=== PATIENT | female | born 1975 | race Caucasian/White ===

== ENCOUNTER 2019-01-22 20:35 | Emergency (ER) | payer OTHER ==
[2019-01-22 20:47] VITALS: BP 162/89; PULSE 104; TEMP 98.4; BMI 47.5
--- NOTE | 2019-01-22 20:48 | PDOC ---
Rapid Medical Evaluation Time Seen by Provider: 01/22/19 20:44 Medical Evaluation: 01/22/19 20:46 I performed a brief in-person evaluation of this patient. Chief complaint: Sharp chest pain, "more intense" than previous pain with GERD or panic attacks Pertinent physical exam findings: RRR, S1/S2, mildly tachycardic. Clear lungs. I have ordered the following: EKG, CXR, cardiac labs, UA, urine preg Patient will proceed to the ED for further evaluation. Discharge Disposition - Diagnosis Chest pain - Referrals - Patient Instructions - Post Discharge Activity
[2019-01-22 21:25] LABS: BASO % 0.3 % (0-2.0); EOS % 2.3 % (0-4.5); HEMATOCRIT 37.4 % (32.4-45.2); HEMOGLOBIN 13.1 GM/dL (10.7-15.3); LYMPH % 35.7 % (8-40); MCH 31.4 pg (25.7-33.7); MCHC 34.9 g/dl (32.0-36.0); MEAN CELL VOLUME 89.9 fl (80-96); MEAN PLT VOLUME 7.6 fl (7.5-11.1); MONO % 8.5 % (3.8-10.2); NEUT % 53.2 % (42.8-82.8); PLATELET COUNT 325 K/MM3 (134-434); RBC 4.17 M/mm3 (3.60-5.2); RDW 12.8 % (11.6-15.6); WHITE BLOOD COUNT 8.2 K/mm3 (4.0-10.0)
--- NOTE | 2019-01-22 21:33 | PDOC ---
History of Present Illness - General Chief Complaint: Chest Pain Stated Complaint: CHEST PAIN Time Seen by Provider: 01/22/19 20:44 History Source: Patient Exam Limitations: No Limitations Past History - Past Medical History Allergies/Adverse Reactions: Allergies Allergy/AdvReac Type Severity Reaction Status Date / Time Penicillins Allergy Verified 01/22/19 20:47 Home Medications: Ambulatory Orders NK [No Known Home Medication] 01/22/19 COPD: No Thyroid Disease: Yes - Suicide/Smoking/Psychosocial Hx Smoking History: Never smoked *Physical Exam - Vital Signs Last Vital Signs Temp Pulse Resp BP Pulse Ox 98.4 F 104 H 20 162/89 98 01/22/19 20:44 01/22/19 20:44 01/22/19 20:44 01/22/19 20:44 01/22/19 20:44 - Physical Exam General Appearance: No: Apparent Distress Respiratory/Chest: positive: Lungs Clear, Normal Breath Sounds. negative: Chest Tender, Respiratory Distress Cardiovascular: positive: Regular Rhythm, Regular Rate, S1, S2. negative: Murmur Gastrointestinal/Abdominal: positive: Normal Bowel Sounds, Soft. negative: Tender, Distended, Guarding, Rebound Extremity: positive: Normal Inspection. negative: Pedal Edema, Calf Tenderness Integumentary: positive: Normal Color Neurologic: positive: Fully Oriented, Alert, Normal Mood/Affect Heart Score/ECG Review - History History: Slightly suspicious - Electrocardiogram EKG: Normal - Age Age: 45-65 - Risk Factors Risk Factors Heart Score: Yes Positive family hx of cardiac disease Based on the list above the patient has:: 1-2 risk factors - Troponin Troponin: </= normal limit - Score Heart Score - Total: 2 Moderate Sedation - Procedure Monitoring Vital Signs: Procedure Monitoring Vital Signs Temperature 98.4 F 01/22/19 20:44 Pulse Rate 104 H 01/22/19 20:44 Respiratory Rate 20 01/22/19 20:44 Blood Pressure 162/89 01/22/19 20:44 O2 Sat by Pulse Oximetry (%) 98 01/22/19 20:44 ED Treatment Course - LABORATORY CBC & Chemistry Diagram: 01/22/19 21:03 01/22/19 21:03 - ADDITIONAL ORDERS Additional order review: Laboratory Results 01/22/19 01/22/19 21:03 21:03 PT with INR 11.50 INR 0.97 Sodium 137 Potassium 4.2 Chloride 107 Carbon Dioxide 26 Anion Gap 5 L BUN 9 Creatinine 0.6 Creat Clearance w eGFR 108.11 Random Glucose 104 Calcium 9.1 Total Bilirubin 0.4 AST 26 ALT 22 Alkaline Phosphatase 53 Creatine Kinase 161 Creatine Kinase Index 0.6 CK-MB (CK-2) < 1.0 Troponin I < 0.02 Total Protein 7.3 Albumin 3.7 01/22/19 21:03 RBC 4.17 MCV 89.9 MCHC 34.9 RDW 12.8 MPV 7.6 Neutrophils % 53.2 Lymphocytes % 35.7 Monocytes % 8.5 Eosinophils % 2.3 Basophils % 0.3 Medical Decision Making - Medical Decision Making 43 y/o F with hx of GERD, anxiety, hypothyroidism presents with sharp pain under R breast and burning substernal CP which initially started 2 days ago at night and then reoccurred again today around 4:30 PM. Mentions was very stressed at work today so unsure if that triggered it. Does not feel like a panic attack. Tried taking Tums but they did not help either. CP is nonexertional and not worsened by anything in particular. Currently is pain free. Denies fever, URI sxs, cough, sob, palpitations, dizziness, abd pain, n/v , calf pain, calf swelling, recent travel/surgeries, OCP use. Denies having this type of pain before. Mentions her mom had "mini-OK" around age 65. Consider ACS No risk factors for PE EKG: NSR at 98 bpm, no ST-T changes Plan: Labs, CXR 01/22/19 21:30 Labs reviewed and unremarkable Heart score 2 Patient resting comfortably, in no pain Patient stable for d/c; advised f/u with her PCP 01/22/19 22:49 *DC/Admit/Observation/Transfer Diagnosis at time of Disposition: Chest pain Qualifiers: Chest pain type: other chest pain Qualified Code(s): R07.89 - Other chest pain - Discharge Dispostion Disposition: HOME Condition at time of disposition: Stable Decision to Admit order: No - Referrals Referrals: Russ Velazquez MD [Primary Care Provider] - 2 Days - Patient Instructions Printed Discharge Instructions: DI for Chest Pain Additional Instructions: Thank you for choosing [facility]. It was a pleasure taking care of you. Your labs and chest xray were normal Would recommend you follow-up with your doctor for further evaluation Return to the Emergency Department if your symptoms worsen or persist or have other concerning symptoms. - Post Discharge Activity
[2019-01-22 21:52] LABS: INR 0.97 (0.83-1.09); PROTHROMBIN TIME (PATIENT) 11.5 SEC (9.7-13.0)
[2019-01-22 22:33] LABS: ALBUMIN 3.7 g/dl (3.4-5.0); ALK PHOS 53 U/L (45-117); ANION GAP 5 MMOL/L (8-16); BILIRUBIN,TOTAL 0.4 mg/dL (0.2-1); BLOOD UREA NITROGEN 9 mg/dL (7-18); CALCIUM 9.1 mg/dL (8.5-10.1); CHLORIDE 107 mmol/L (98-107); CO2 26 mmol/L (21-32); CREATININE 0.6 mg/dL (0.55-1.3); GLUCOSE,RANDOM 104 mg/dL (74-106); POTASSIUM 4.2 mmol/L (3.5-5.1); SGOT/AST 26 U/L (15-37); SGPT/ALT 22 U/L (13-61); SODIUM 137 mmol/L (136-145); TOT PROT 7.3 g/dl (6.4-8.2)
--- NOTE | 2019-01-23 10:57 | EKG ---
Test Reason : Blood Pressure : / mmHG Vent. Rate : 098 BPM Atrial Rate : 098 BPM P-R Int : 142 ms QRS Dur : 086 ms QT Int : 370 ms P-R-T Axes : 043 030 019 degrees QTc Int : 472 ms NORMAL SINUS RHYTHM POOR R WAVE PROGRESSION ABNORMAL ECG NO PREVIOUS ECGS AVAILABLE Confirmed by LAURENT DANIELS MD ([id number]) on 01/23/2019 10:57:18 AM Referred By: Confirmed By:LAURENT DANIELS MD
== END 2019-01-22 23:31 | disposition home or self-care (01) ==
LOC: JER 20:35
DX: R07.89 Other chest pain (principal); K21.9 Gastro-esophageal reflux disease without esophagitis; E03.9 Hypothyroidism, unspecified; F41.9 Anxiety disorder, unspecified
CPT/HCPCS: 36415; 71046-TC-FY; 80053; 82550; 82553; 84484; 85025; 85610; 93005; 93010; 99283-25

== ENCOUNTER 2019-03-26 23:25 | Emergency (ER) | payer OTHER ==
[2019-03-26 23:41] VITALS: BP 150/96; PULSE 106; TEMP 98.1; BMI 49.4
--- NOTE | 2019-03-26 23:55 | PDOC ---
History of Present Illness - General Chief Complaint: Pain, Acute Stated Complaint: RT KNEE PAIN Time Seen by Provider: 03/26/19 23:37 - History of Present Illness Initial Comments: This 43-year-old woman with a history of hypothyroidism/anxiety presents with 1 day history of worsening right knee pain. Patient states that she has had right knee pain for several weeks after minor injury. She was seen by her PMD, and MRI of the right knee was ordered(awaiting insurance approval) . Today, patient states that she twisted her right knee and since then has had pain with weightbearing. She did not fall and denies any impact of the knee or other body part. She took OTC naproxen for the knee pain about 4 hours prior to presentation with minimal relief. She denies any other pain or edema of the right leg. Past History - Past Medical History Allergies/Adverse Reactions: Allergies Allergy/AdvReac Type Severity Reaction Status Date / Time Penicillins Allergy Verified 01/22/19 20:47 Home Medications: Ambulatory Orders Levothyroxine [Synthroid -] 125 mcg PO DAILY 03/26/19 Naproxen Sodium [Aleve] 440 mg PO ONCE 03/26/19 Diclofenac Sodium [Voltaren -] 75 mg PO BID PRN #20 tablet. 03/27/19 COPD: No Thyroid Disease: Yes - Suicide/Smoking/Psychosocial Hx Smoking History: Never smoked Review of Systems - Review of Systems Able to Perform ROS?: Yes Comments:: 12 point review of systems is negative except for what is noted in the history of present illness *Physical Exam - Vital Signs Last Vital Signs Temp Pulse Resp BP Pulse Ox 98.1 F 106 H 16 150/96 98 03/26/19 23:37 03/26/19 23:37 03/26/19 23:37 03/26/19 23:37 03/26/19 23:37 - Physical Exam Comments: GENERAL: Adult female, alert and oriented 3, in mild distress secondary to right knee pain HEAD: Normal with no signs of trauma. EXTREMITIES: Right knee-minimal edema, moderate tenderness especially medial aspect and with valgus stressing No ecchymosis or deformity noted Pain is reproduced with passive and active extension of the joint No pain or deformity of the patella Extremity exam is otherwise normal NEUROLOGICAL: Cranial nerves II through XII grossly intact. Normal speech. No focal neurological deficits. MUSCULOSKELETAL: Back non-tender to palpation, no CVA tenderness SKIN: Warm, Dry, normal turgor, no rashes or lesions noted. Progress Note - Progress Note Progress Note: This 43-year-old year-old woman with a history of right knee pain in the recent past presents with increased pain this evening after twisting the right knee during the day today. There was no fall or other impact of the knee. Exam as noted. Because she did not fall or otherwise impact the knee and without evidence of deformity/ecchymosis/marked edema, fracture dislocation is highly unlikely. Therefore, plain x-ray was not performed. Clinical presentation most consistent with soft tissue injury such as ligamentous strain, possibly medially from findings on the exam. MRI of the knee has already been ordered by the patient's PMD and awaiting insurance approval. Therefore, the patient was given Toradol 60 mg IM now for analgesia/ anti-inflammatory effects. Knee immobilizer was placed on the right knee; patient should wear this during the day until reevaluated by her PMD. Diclofenac 75 mg to be used up to twice a day as needed for pain prescribed She should inform her doctor of her new injury and visit to the ER. She return to the emergency room if she has severe, persistent pain or develops increased swelling/bruising. *DC/Admit/Observation/Transfer Diagnosis at time of Disposition: Knee sprain Qualifiers: Encounter type: initial encounter Involved ligament of knee: unspecified ligament Laterality: right Qualified Code(s): S83.91XA - Sprain of unspecified site of right knee, initial encounter - Discharge Dispostion Disposition: HOME Condition at time of disposition: Stable - Prescriptions Prescriptions: Diclofenac Sodium [Voltaren -] 75 mg PO BID PRN #20 tablet.dr GARCIA Reason: Pain - Referrals Referrals: Russ Velazquez MD [Primary Care Provider] - - Patient Instructions Printed Discharge Instructions: Knee Sprain Additional Instructions: Ice/elevation of right knee as much as possible over the next 2 days Avoid walking/standing for prolonged periods Knee immobilizer when up and around until MRI is performed Diclofenac 75 mg twice a day with food as needed(stop Aleve) Follow-up with your general medical doctor as scheduled Return to ER if you have severe pain/swelling - Post Discharge Activity
[2019-03-26] MEDS ORDERED: KETOROLAC TROMETHAMINE 60 MG/2 ML VIAL IM ONE (23:56)
[2019-03-26] MEDS ORDERED: KETOROLAC TROMETHAMINE 60 MG/2 ML VIAL ONE (23:57)
== END 2019-03-27 00:10 | disposition home or self-care (01) ==
LOC: FER 23:25
PROC: 2W3QX1Z Immobilization of Right Lower Leg using Splint (ICD-10-PCS; principal; 2019-03-26)
PROC: 3E0233Z Introduction of Anti-inflammatory into Muscle, Percutaneous Approach (ICD-10-PCS; 2019-03-26)
DX: S83.91XA Sprain of unspecified site of right knee, initial encounter (principal); E03.9 Hypothyroidism, unspecified; F41.9 Anxiety disorder, unspecified
CPT/HCPCS: 99282-25